=== PATIENT | female | born 1995 | race Caucasian/White ===

== ENCOUNTER 2018-04-18 14:20 | Emergency (ER) | payer OTHER, MEDICAID, SELFPAY ==
[2018-04-18 14:27] VITALS: BP 111/77; PULSE 92; RESP 17; TEMP 36.8; O2SAT 98; BMI 25.5
[2018-04-18 15:38] LABS: RBC Urine None Seen (0-5/HPF); WBC Urine None Seen (0-5/HPF)
[2018-04-18 15:48] LABS: Bacteria Urine Moderate (10-30); Culture Indicated Urine Cult Not Indicated; Squamous Epithelial Cell Urine 10-30 /HPF
--- NOTE | 2018-04-18 15:50 | ED_ITS ---
HPI - Abdominal Pain General Chief Complaint: Abdominal Pain Stated Complaint: STOMACH FEELS LIKE ITS RIPPING Time Seen by Provider: 04/18/18 15:53 History of Present Illness HPI narrative: Patient is a 22-year-old female who presents with lower abdominal pain. She said she stretched out last night and a full-body stretch and then felt pain in her scar. She has since had painful urination. It feels sore. No nausea vomiting. Her was 3 and half years ago. MD complaint: abdominal pain Related Data Previous Rx's Medication Instructions Recorded ondansetron [Zofran ODT] 4 mg SUBLINGUAL Q6HP PRN #5 odt 11/16/17 Allergies Allergy/AdvReac Type Severity Reaction Status Date / Time No Known Allergies Allergy Uncoded 04/18/18 14:27 Review of Systems Review of Systems GENERAL: Denies chills,fever HEENT: Denies throat pain RESPIRATORY: Denies dyspnea, cough, wheezing CARDIOVASCULAR: Denies chest pain, palpitations GASTROINTESTINAL: see hpi MUSCULOSKELETAL: Denies extremity pain, injury SKIN: No rash, no laceration, no pruritus NEUROLOGIC: Denies weakness, dizziness, headache, numbness 8 point review of systems is negative except for those stated above and HPI PFSH Surgical History Status post (Acute) Social History Smoking Status: Current every day smoker Exam Initial Vital Signs Initial Vital Signs: Vital Signs Temperature 98.3 F 04/18/18 14:27 Pulse Rate 92 H 04/18/18 14:27 Respiratory Rate 17 04/18/18 14:27 Blood Pressure 111/77 04/18/18 14:27 Pulse Oximetry 98 04/18/18 14:27 GENERAL: Well-appearing, well-nourished and in no acute distress. HEENT: Head atraumatic,EOMI, pupils reactive, face symmetric, moist mucous membranes CARDIOVASCULAR: Regular rate and rhythm without murmurs, rubs or gallops. RESPIRATORY: Breath sounds equal bilaterally, no wheezes rales or rhonchi. ABDOMEN: Soft, nontender. Normoactive bowel sounds all 4 quadrants. No guarding or rebound. EXTREMITIES: Normal range of motion, no clubbing or edema. Neurovascularly intact NEUROLOGICAL: Alert and oriented x4.Normal gait and speech. SKIN: Warm, dry, no laceration, no petechiae, no rashes or lesions. Course Orders Ordered: ED Orders 04/18/18 15:30 Urine Microscopic Stat Vital Signs - 8 hr 04/18/18 14:27 04/18/18 16:07 Temperature 98.3 F Pulse Rate 92 H 81 Respiratory Rate 17 14 Blood Pressure 111/77 Blood Pressure [Left Arm] 103/68 Pulse Oximetry 98 100 MDM - Abdominal Pain Lab Data Lab Results 04/18/18 Range/Units 15:30 Urine RBC None seen (0-5/HPF) Urine WBC None seen (0-5/HPF) Ur Squamous Epith Cells 10-30 /hpf H Urine Bacteria Moderate (10-30) H (None) Ur Culture Indicated? Cult not indicated Micro UA Comment Not Reportable Point of care testing: Point of Care Testing Test Results Negative Urine Dip Bedside Urine Glucose Negative Bedside Urine Bilirubin - Negative Bedside Urine Ketone - Negative Urine Specific [place] 1.020 Bedside Urine Occult Blood +/- Bedside Urine pH 8.0 Bedside Urine Protein - Negative Bedside Urine Urobilinogen - Negative Bedside Urine Nitrite - Negative Bedside Urine Leukocytes - Negative Esterase MDM Narrative Medical decision making narrative: Patient has no real mechanism or injury. Urine is clean. She is tolerating oral fluids. Abdomen is soft and nondistended. At this time because more of abdominal wall strain no imaging indicated at this time. I discussed all findings with the patient and spouse, Education has been performed regarding treatment plan, diagnosis, warning signs and symptoms and all concerns have been addressed. Verbally agree with and understood all of the above. Discharge Plan Departure Patient Disposition: Home, Self-Care Clinical Impression: Abdominal wall strain Discharge Date/Time: 04/18/18 16:12 Interventions: ED Discharge Assessment Last Done: 04/18/18 16:12 Activity Restrictions/Additional Instructions: *You have been diagnosed with a abdominal wall strain *What to do: *Continue to take medications as directed -take [id number] Tylenol and/or ibuprofen as directed if needed for pain *Follow up with your primary care provider in 2-3 days *Return to ER if you should have any new, worsening or concerning symptoms Prescriptions: No Action ondansetron [Zofran ODT] 4 MG tablet,disintegrating 4 mg Sublingual Q6HP PRNQty: 5 RF: 0 Referrals: Nora Ferro MD [Primary Care Provider] -
[2018-04-18 16:07] VITALS: BP 103/68; PULSE 81; RESP 14; O2SAT 100
--- NOTE | 2018-04-18 16:09 | PC.NURSE ---
states, pt was stretching, developed lower bilarateral abdominal pain, denies fever, or vomiting.
== END 2018-04-18 16:12 | disposition home or self-care (01) ==
PROVIDERS: Emergency Provider Emergency Medicine; PCP Family Medicine
DX: S39.011A Strain of muscle, fascia and tendon of abdomen, initial encounter (principal)
CPT/HCPCS: 81003; 81015; 81025; 99282; 99283